=== PATIENT | male | born 1935 | race American Indian/Alaskan Native ===

== ENCOUNTER 2019-06-07 22:42 | Emergency (ER) | payer MEDICARE ==
[2019-06-07] MEDS ORDERED: ZOFRAN IV ONE (23:30)
[2019-06-07] MEDS ORDERED: MORPHINE IV ONE (23:30)
--- NOTE | 2019-06-08 00:02 | Emergency Department Report ---
ED General Adult HPI - General Chief complaint: Fall Stated complaint: LOWER BACK PAIN Time Seen by Provider: 06/07/19 23:09 Source: patient, EMS Mode of arrival: Stretcher Limitations: No Limitations - History of Present Illness Initial comments: Patient presents to the emergency department status post a fall. Patient states that he was trying to kill insect in his home when he lost his balance and fell. Patient complains of right hip pain and does endorse striking his head but denies loss consciousness. -: Sudden Location: head, pelvis Radiation: non-radiation Severity scale (0 -10): 6 Quality: aching Consistency: constant Improves with: rest Worsens with: movement Associated Symptoms: denies other symptoms Treatments Prior to Arrival: none - Related Data Previous Rx's Medication Instructions Recorded Last Taken Type HYDROcodone/APAP 5-325 [[place] 1 each PO Q6HR PRN #12 tablet 06/08/19 Unknown Rx 5/325] Allergies Allergy/AdvReac Type Severity Reaction Status Date / Time NSAIDS (Non-Steroidal AdvReac Unknown Verified 06/07/19 23:17 Anti-Inflamma ED Review of Systems ROS: Stated complaint: LOWER BACK PAIN Other details as noted in HPI Constitutional: denies: chills, fever Eyes: denies: eye pain, eye discharge, vision change ENT: denies: ear pain, throat pain Respiratory: denies: cough, shortness of breath, wheezing Cardiovascular: denies: chest pain, palpitations Endocrine: no symptoms reported Gastrointestinal: denies: abdominal pain, nausea, diarrhea Genitourinary: denies: urgency, dysuria Musculoskeletal: denies: back pain, joint swelling, arthralgia Skin: denies: rash, lesions Neurological: denies: headache, weakness, paresthesias Psychiatric: denies: anxiety, depression Hematological/Lymphatic: denies: easy bleeding, easy bruising ED Past Medical Hx - Past Medical History Previous Medical History?: Yes Hx Hypertension: Yes Hx Renal Disease: Yes Additional medical history: major deterioration of L1-L4 disks, Cochlear hydrops - Surgical History Past Surgical History?: Yes Additional Surgical History: remove tonsil& adenoids, julius hernia repair, remove L4 disk, vasectomy, Dupytrene's contracture left hand, ditto, repair shattered right heel, cracked right ankle& 3 cracked vertebrae, julius hand basel joint repair, julius cataract, sigmoid resection, right macular pucker repair, fuse right big toe and ankle, fuse long bones left foot, treat prostate cancer with radioactive seeds& radiation, kidney transplant(2015), esophageal and small GE junction tear repair. - Social History Smoking Status: Never Smoker Substance Use Type: None - Medications Home Medications: Home Medications Medication Instructions Recorded Confirmed Last Taken Type HYDROcodone/APAP 5-325 [[place] 1 each PO Q6HR PRN #12 tablet 06/08/19 Unknown Rx 5/325] ED Physical Exam - General Limitations: No Limitations General appearance: alert, in no apparent distress - Head Head exam: Present: atraumatic, normocephalic - Eye Eye exam: Present: normal appearance. Absent: PERRL, EOMI - ENT ENT exam: Present: mucous membranes moist - Neck Neck exam: Present: normal inspection - Respiratory Respiratory exam: Present: normal lung sounds bilaterally. Absent: respiratory distress - Cardiovascular Cardiovascular Exam: Present: regular rate, normal rhythm. Absent: systolic mur mur, diastolic murmur, rubs, gallop - GI/Abdominal GI/Abdominal exam: Present: soft, normal bowel sounds - Rectal Rectal exam: Present: deferred - Extremities Exam Extremities exam: Present: other (tenderness palpation of right hip) - Back Exam Back exam: Present: normal inspection - Neurological Exam Neurological exam: Present: alert, oriented X3 - Psychiatric Psychiatric exam: Present: normal affect, normal mood - Skin Skin exam: Present: warm, dry, normal color, other (abrasion to the dorsal aspect of the antebrachium). Absent: rash ED Course Vital Signs 06/07/19 06/07/19 06/08/19 23:01 23:42 00:14 Temperature 97.8 F Pulse Rate 79 Respiratory 16 16 16 Rate Blood Pressure 169/66 O2 Sat by Pulse 97 97 Oximetry ED Medical Decision Making - Lab Data Result diagrams: 06/08/19 00:08 06/08/19 00:08 Lab Results 06/08/19 06/08/19 06/08/19 Range/Units 00:08 00:08 00:08 WBC 9.0 (4.5-11.0) K/mm3 RBC 3.50 L (3.65-5.03) M/mm3 Hgb 11.2 L (11.8-15.2) gm/dl Hct 33.1 L (35.5-45.6) % MCV 95 H (84-94) fl MCH 32 (28-32) pg MCHC 34 (32-34) % RDW 15.0 (13.2-15.2) % Plt Count 160 (140-440) K/mm3 PT 13.8 (12.2-14.9) Sec. INR 1.09 (0.87-1.13) APTT 23.9 L (24.2-36.6) Sec. Sodium 141 (137-145) mmol/L Potassium 4.5 (3.6-5.0) mmol/L Chloride 102.2 (98-107) mmol/L Carbon Dioxide 26 (22-30) mmol/L Anion Gap 17 mmol/L BUN 42 H (9-20) mg/dL Creatinine 1.3 (0.8-1.5) mg/dL Estimated GFR > 60 ml/min BUN/Creatinine Ratio 32 % Glucose 109 H (75-100) mg/dL Calcium 9.4 (8.4-10.2) mg/dL Total Bilirubin 0.20 (0.1-1.2) mg/dL AST 27 (5-40) units/L ALT 22 (7-56) units/L Alkaline Phosphatase 57 (35-129) units/L Total Protein 6.4 (6.3-8.2) g/dL Albumin 4.1 (3.9-5) g/dL Albumin/Globulin Ratio 1.8 % - Radiology Data Radiology results: report reviewed - Medical Decision Making Discussed results with the patient Critical care attestation.: If time is entered above; I have spent that time in minutes in the direct care of this critically ill patient, excluding procedure time. ED Disposition Clinical Impression: Closed head injury, Hip pain, right Disposition: DC-01 TO HOME OR SELFCARE Is pt being admited?: No Does the pt Need Aspirin: No Condition: Stable Instructions: Minor Head Injury (ED), Hip Sprain (ED) Additional Instructions: return if worse Referrals: PRIMARY CARE, [Primary Care Provider] - 3-5 Days [facility] [Provider Group] - 3-5 Days [facility] [Provider Group] - 3-5 Days Time of Disposition: 01:36
--- NOTE | 2019-06-08 00:23 | Cat Scan Report ---
CT HEAD WITHOUT CONTRAST INDICATION : Closed head injury after fall. Pain along left side of head. TECHNIQUE: Axial, coronal and sagittal CT imaging was performed from the skull apex through the skul l base without contrast. All CT scans at this location are performed using CT dose reduction for ALA RA by means of automated exposure control. COMPARISON: None available. FINDINGS: PARENCHYMA: No mass, midline shift, hemorrhage, extraaxial collection or acute territorial infarctio n. Global atrophy is consistent with the patient's age. Scattered areas of low-attenuation along the periventricular white matter likely represent chronic microvascular ischemic changes. VENTRICLES: Prominent secondary to atrophy. No acute abnormality. SOFT TISSUES: Soft tissues including the orbits appear normal. BONES: No acute osseous abnormality. SINUSES: No significant abnormality. ADDITIONAL FINDINGS: None. IMPRESSION: 1. No acute abnormality. 2. Additional chronic changes as above. Signer Name: Santiago Alvarenga MD Signed: 06/08/2019 12:18 AM Workstation Name: [email or web address]
--- NOTE | 2019-06-08 00:34 | XRay Report ---
RIGHT HIP 2 VIEWS INDICATION / CLINICAL INFORMATION: Pain in right hip after fall. COMPARISON: None available. FINDINGS: BONES and JOINT(S): No acute fracture or subluxation. There is moderate lower lumbar spondylosis. No additional significant arthritis. SOFT TISSUES: No significant abnormality. ADDITIONAL FINDINGS: Surgical changes are noted along the right hemipelvis. There are brachytherapy s eeds at the expected location of the prostate gland. Generalized moderate atherosclerosis is present. IMPRESSION: No acute findings. Signer Name: Santiago Alvarenga MD Signed: 06/08/2019 12:30 AM Workstation Name: [id number]
[2019-06-08 00:42] LABS: Hematocrit 33.1 % (35.5-45.6); Hemoglobin 11.2 gm/dl (11.8-15.2); Mean Corpuscular HGB Conc 34 % (32-34); Mean Corpuscular Hemoglobin 32 pg (28-32); Mean Corpuscular Volume 95 fl (84-94); Platelet Count 160 K/mm3 (140-440)
[2019-06-08 00:52] LABS: INR 1.09 (0.87-1.13); Partial Thromboplastin Time 23.9 Sec. (24.2-36.6)
[2019-06-08 01:04] LABS: Alanine Aminotransferase 22 units/L (7-56); Albumin 4.1 g/dL (3.9-5); BUN/Creatinine Ratio 32; Blood Urea Nitrogen 42 mg/dL (9-20); Calcium 9.4 mg/dL (8.4-10.2); Hemolysis Index 16
[2019-06-08] MEDS ORDERED: TRIPLE ANTIBIOTIC TP ONE (01:08)
[2019-06-08 02:11] VITALS: BP 140/48
[2019-06-08 03:31] LABS: Band Neutrophils # (Manual) 0.3 K/mm3; Basophils % (Manual) 0 % (0.0-1.8); Total Cells Counted 100
[2019-06-08 03:32] LABS: Anisocytosis 1+; Macrocytosis 1+; Platelet Estimate Consistent w Auto
== END 2019-06-08 02:13 | disposition home or self-care (01) ==
LOC: ED 22:42
DX: S60.511A Abrasion of right hand, initial encounter (principal); S09.90XA Unspecified injury of head, initial encounter; M25.551 Pain in right hip; I10 Essential (primary) hypertension; Z98.890 Other specified postprocedural states; Z79.899 Other long term (current) drug therapy; Z88.8 Allergy status to other drugs, medicaments and biological substances; W18.30XA Fall on same level, unspecified, initial encounter; Y93.89 Activity, other specified; Y92.89 Other specified places as the place of occurrence of the external cause; Y99.8 Other external cause status
CPT/HCPCS: 36415; 70450; 73502; 80053; 85007; 85025; 85610; 85730; 96374; 96375; 99285; J2270; J2405; A6250